=== PATIENT | female | born 2000 | race Two or more races ===

== ENCOUNTER 2021-01-25 20:46 | Emergency (ER) | payer OTHER ==
[2021-01-25 20:52] VITALS: BMI 20.5
[2021-01-25] MEDS ORDERED: ACTIVATED CHARCOAL 260 MG CAPSULE PO ONE ×2 (21:28→21:35)
[2021-01-25] MEDS ORDERED: LACTATED RINGERS SOLUTION 1000 ML INFUS.BAG IV ONE (21:33)
[2021-01-25 21:38] LABS: BASO % 1.3 % (0-2.0); EOS % 1.4 % (0-4.5); HEMATOCRIT 37.8 % (32.4-45.2); HEMOGLOBIN 12.8 GM/dL (10.7-15.3); LYMPH % 33.8 % (8-40); MCH 31.1 pg (25.7-33.7); MCHC 33.8 g/dl (32.0-36.0); MEAN CELL VOLUME 91.9 fl (80-96); MONO % 5.6 % (3.8-10.2); NEUT % 57.9 % (42.8-82.8); RBC 4.12 M/mm3 (3.60-5.2); RDW 14.1 % (11.6-15.6); WHITE BLOOD COUNT 8.2 K/mm3 (4.0-10.0)
[2021-01-25 21:39] LABS: VENOUS BASE EXCESS -2.8 mmol/L (-2-2); VENOUS O2 SATURATION 27.2 % (70-80); VENOUS PCO2 49.6 mmHg (38-52); VENOUS PH 7.303 (7.310-7.410)
[2021-01-25 21:55] LABS: CHLORIDE 108 mmol/L (98-107); SODIUM 140 mmol/L (136-145)
[2021-01-25 21:57] LABS: CALCIUM 9.3 mg/dL (8.5-10.1)
[2021-01-25 21:58] LABS: ALBUMIN 4.6 g/dl (3.4-5.0); ANION GAP 7 MMOL/L (8-16); BLOOD UREA NITROGEN 10.6 mg/dL (7-18); CO2 25 mmol/L (21-32); GLUCOSE,RANDOM 66 mg/dL (74-106); MAGNESIUM 2.1 mg/dL (1.8-2.4)
[2021-01-25 22:01] LABS: SGOT/AST 26 U/L (15-37); SGPT/ALT 21 U/L (13-61)
[2021-01-25] MEDS ORDERED: CHARCOAL/WATER SOLUTION 25 GM/120 ML TUBE PO ONE (22:01)
[2021-01-25 22:03] LABS: TOT PROT 8.5 g/dl (6.4-8.2)
[2021-01-25 22:04] LABS: ALK PHOS 87 U/L (45-117)
[2021-01-25] MEDS ORDERED: CHARCOAL/WATER SOLUTION 25 GM/120 ML TUBE ONE (22:15)
[2021-01-25 22:27] LABS: PLATELET ESTIMATE NORMAL
[2021-01-25 22:35] LABS: MEAN PLT VOLUME 10.1 fl (7.5-11.1); PLATELET COUNT 276 10^3/uL (134-434)
[2021-01-26 02:56] VITALS: TEMP 98.2
[2021-01-26 08:35] LABS: URINE APPEARANCE CLEAR; URINE BILIRUBIN NEGATIVE (NEGATIVE); URINE COLOR YELLOW; URINE GLUCOSE (UA) NEGATIVE (NEGATIVE); URINE KETONE NEGATIVE (NEGATIVE); URINE PROTEIN TRACE (NEGATIVE)
[2021-01-26 08:36] LABS: EPI CELLS 70.1 /uL (0-25.1); HYALINE CASTS 6.35 /uL (0-3.1); URINE BACTERIA 545.8 /uL (0-1359); URINE LEUK ESTERASE NEGATIVE (NEGATIVE); URINE NITRITE NEGATIVE (NEGATIVE); URINE RBC 6.4 /uL (0-23.9); URINE UROBILINOGEN 0.2 mg/dL (0.2-1.0); URINE WBC 17 /uL (0-25.8)
[2021-01-26 08:48] LABS: COCAINE, UR NEGATIVE (NEGATIVE); OPIATES, URI NEGATIVE (NEGATIVE); URINE BARBITURATES NEGATIVE (NEGATIVE)
[2021-01-26 08:49] LABS: METHADONE, UR NEGATIVE (NEGATIVE); PHENCYCLIDINE,URINE NEGATIVE (NEGATIVE); URINE AMPHETAMINES NEGATIVE (NEGATIVE)
[2021-01-26 08:53] LABS: URINE BENZODIAZEPINES NEGATIVE (NEGATIVE)
[2021-01-26 11:43] VITALS: BP 119/70; PULSE 70
== END 2021-01-26 11:43 | disposition home or self-care (01) ==
LOC: JER 20:46
DX: T39.1X4A Poisoning by 4-Aminophenol derivatives, undetermined, initial encounter (principal)
CPT/HCPCS: 80053; 80307; 81003; 82550; 82803; 82962; 83735; 84100; 84484; 84703; 85025; 93005; 93010; 99284-25; C9803; U0003; U0005